=== PATIENT | female | born 1970 | race American Indian/Alaskan Native ===

== ENCOUNTER 2017-07-31 13:18 | Observation (INO) | payer MEDICAID ==
[2017-07-31 14:03] LABS: BASO # 0.1 K/uL (0.0-0.2); BASO % 0.5 % (0.0-2.0); EOS # 0.1 K/uL (0.0-0.7); EOS % 0.8 % (0.0-4.0); LYMPH # 2.3 K/uL (1.0-4.3); LYMPH % 20.9 % (20.0-40.0); MEAN CELL VOLUME 90.9 fL (81.0-99.0); MEAN CORPUSCULAR HGB CONC 34.1 g/dL (33.0-37.0); MEAN PLATELET VOLUME 8.9 fL (7.2-11.7); MONO # 0.6 K/uL (0.0-0.8); MONO % 5.2 % (0.0-10.0); NEUT % 72.6 % (50.0-75.0); RBC 3.86 Mil/uL (3.80-5.20); RED CELL DISTRIBUTION WIDTH 14.3 % (11.5-14.5); WHITE BLOOD COUNT 11.1 K/uL (4.8-10.8)
--- NOTE | 2017-07-31 14:06 | C.PDOC ---
History Of Present Illness 46 year old female, whose PMHx includes HTN and PE, is brought to the ED by ambulance for evaluation of chest pain which began one day ago. Patient describes symptoms as a "pressure" and "sharp" sensation. She states the pain began radiating towards her back this morning. Patient was noted to be sitting in her car outside of [employer] when someone called EMS. Patient states she felt like she was going to "pass out." She was given Nitro and Aspirin by EMS, which have improved her symptoms. Patient has history of PE and reports taking blood thinners in the past. She denies cough, extremity numbness/weakness. Time Seen by Provider: 07/31/17 13:40 Chief Complaint (Nursing): Chest Pain History Per: Patient, EMS History/Exam Limitations: no limitations Current Symptoms Are (Timing): Better Quality: Sharp, Pressure, "Pain" Nitro Therapy Administered: 1, Per EMS Additional History Per: Patient Past Medical History Reviewed: Historical Data, Nursing Documentation, Vital Signs Vital Signs: Last Vital Signs Temp 98.3 F 07/31/17 13:44 Pulse 73 07/31/17 17:32 Resp 13 07/31/17 17:32 BP 114/72 07/31/17 16:11 Pulse Ox 100 07/31/17 17:32 - Medical History PMH: Asthma, HTN, Pulmonary Embolism Surgical History: No Surg Hx Family History: States: Unknown Family Hx - Social History Hx Alcohol Use: No Hx Substance Use: No - Immunization History Hx Tetanus Toxoid Vaccination: No Hx Influenza Vaccination: No Hx Pneumococcal Vaccination: No Review Of Systems Cardiovascular: Positive for: Chest Pain Respiratory: Negative for: Cough Neurological: Negative for: Weakness, Numbness Physical Exam - Physical Exam Appears: Non-toxic, No Acute Distress Skin: Normal Color, Warm, Dry Head: Atraumatic, Normacephalic Eye(s): bilateral: Normal Inspection Oral Mucosa: Moist Neck: Supple Chest: Symmetrical, No Deformity, No Tenderness Cardiovascular: Rhythm Regular, No Murmur Respiratory: Normal Breath Sounds, No Rales, No Rhonchi, No Wheezing Extremity: Normal ROM, Capillary Refill (less than 2 seconds ) Neurological/Psych: Oriented x3, Normal Speech, Normal Cognition ED Course And Treatment - Laboratory Results Result Diagrams: 07/31/17 13:56 07/31/17 13:56 O2 Sat by Pulse Oximetry: 99 - Other Rad CXR X-Ray: Interpreted by Me, Viewed By Me, Read By Radiologist Interpretation: PROCEDURE: CHEST RADIOGRAPH, 1 VIEW. HISTORY: Chest pain. COMPARISON: None. FINDINGS: LUNGS: The lungs are well inflated and clear. PLEURA: No pneumothorax or pleural fluid seen. CARDIOVASCULAR: Normal. OSSEOUS STRUCTURES: No significant abnormalities. VISUALIZED UPPER ABDOMEN: Normal. OTHER FINDINGS: None. IMPRESSION: No active pulmonary disease. Medical Decision Making Medical Decision Making: Assessment: chest pain Plan: * Bloodwork * CXR * EKG * Toradol IM * reassess and disposition Progress: Bloodwork, CXR, EKG ordered and reviewed. Toradol IM administered. Disposition Discussed With Dr.: Kaveh Banks Doctor Will See Patient In The: Hospital Counseled Patient/Family Regarding: Studies Performed, Diagnosis - Disposition Referrals: Antoni Bradley MD [Staff Provider] - Disposition: HOSPITALIZED Disposition Time: 18:03 Condition: FAIR Forms: [facility] [employer] (Turkish) - POA Core Measure Indicators: Chest Pain - Clinical Impression Clinical Impression: Chest pain
[2017-07-31 14:24] LABS: ALB/GLOB RATIO 1.2 (1.0-2.1); ALBUMIN 4.1 g/dL (3.5-5.0); ALT/SGPT 31 U/L (9-52); AST/SGOT 38 U/L (14-36); BLOOD UREA NITROGEN 11 mg/dL (7-17); CALCIUM 8.9 mg/dl (8.6-10.4); GFR AFRICAN-AMERICAN > 60; GFR NON-AFRICAN AMERICAN > 60; LIPASE 132 U/L (23-300)
--- NOTE | 2017-07-31 14:33 | RAD ---
PROCEDURE: CHEST RADIOGRAPH, 1 VIEW HISTORY: Chest pain COMPARISON: None. FINDINGS: LUNGS: The lungs are well inflated and clear. PLEURA: No pneumothorax or pleural fluid seen. CARDIOVASCULAR: Normal. OSSEOUS STRUCTURES: No significant abnormalities. VISUALIZED UPPER ABDOMEN: Normal. OTHER FINDINGS: None. IMPRESSION: No active pulmonary disease.
[2017-07-31] MEDS ORDERED: Iodixanol 320 MG/ML 100 ML BOTTLE IV ONE (16:11)
--- NOTE | 2017-07-31 17:11 | CT ---
PROCEDURE: CT Chest with contrast (Pulmonary Angiogram) HISTORY: chest pain with hx of pe COMPARISON: None available. TECHNIQUE: Axial computed tomography images were obtained of the chest in the pulmonary arterial phase of enhancement. Coronal and sagittal reformatted images were created and reviewed. Intravenous contrast dose: 100 cc Visipaque 320. Mean Hounsfield unit values in the main pulmonary artery: 256.59 Radiation dose: Total exam DLP = 375.10 mGy-cm. This CT exam was performed using one or more of the following dose reduction techniques: Automated exposure control, adjustment of the mA and/or kV according to patient size, and/or use of iterative reconstruction technique. FINDINGS: PULMONARY ARTERIES: Unremarkable. No pulmonary embolism. AORTA: No acute findings. No thoracic aortic aneurysm. LUNGS: Unremarkable. No nodule, mass or pulmonary consolidation. PLEURAL SPACES: Unremarkable. No effusion or pneuomothorax. HEART: Unremarkable. No cardiomegaly. No significant pericardial effusion. LYMPH NODES: No lymphadenopathy. BONES, CHEST WALL: Unremarkable. No fracture or destructive lesion OTHER FINDINGS: Unremarkable. IMPRESSION: Unremarkable CT pulmonary angiogram. No pulmonary embolus.
[2017-07-31] MEDS ORDERED: Morphine 4 MG/ML VIAL IV STA (17:48)
[2017-07-31] MEDS ORDERED: Morphine 4 MG/ML VIAL ONE (18:25)
--- NOTE | 2017-07-31 23:27 | CP.PCM.CON ---
History of Present Illness - History of Present Illness History of Present Illness: Patient seen and evaluated Admitted for chest pain EKG non specific EKG changes Trop x 2 negative CTA negative for PE Check ECHO Will follow 46 year old female, whose PMHx includes HTN and PE, is brought to the ED by ambulance for evaluation of chest pain which began one day ago. Patient describes symptoms as a "pressure" and "sharp" sensation. She states the pain began radiating towards her back this morning. Patient was noted to be sitting in her car outside of [employer] when someone called EMS. Patient states she felt like she was going to "pass out." She was given Nitro and Aspirin by EMS, which have improved her symptoms. Patient has history of PE and reports taking blood thinners in the past. She denies cough, extremity numbness/weakness. - Medical History PMH: Asthma, HTN, Pulmonary Embolism Surgical History: No Surg Hx Family History: States: Unknown Family Hx - Social History Hx Alcohol Use: No Hx Substance Use: No - Immunization History Hx Tetanus Toxoid Vaccination: No Hx Influenza Vaccination: No Hx Pneumococcal Vaccination: No Review Of Systems Cardiovascular: Positive for: Chest Pain Respiratory: Negative for: Cough Neurological: Negative for: Weakness, Numbness Physical Exam - Physical Exam Appears: Non-toxic, No Acute Distress Skin: Normal Color, Warm, Dry Head: Atraumatic, Normacephalic Eye(s): bilateral: Normal Inspection Oral Mucosa: Moist Neck: Supple Chest: Symmetrical, No Deformity, No Tenderness Cardiovascular: Rhythm Regular, No Murmur Respiratory: Normal Breath Sounds, No Rales, No Rhonchi, No Wheezing Extremity: Normal ROM, Capillary Refill (less than 2 seconds ) Neurological/Psych: Oriented x3, Normal Speech, Normal Cognition Past Patient History - Past Social History Smoking Status: Never Smoked - CARDIAC Hx Hypertension: Yes - PULMONARY Hx Asthma: Yes Hx Pulmonary Embolism: Yes - NEUROLOGICAL HX Cerebrovascular Accident: Yes - PSYCHIATRIC Hx Substance Use: No - SURGICAL HISTORY Hx Surgeries: Yes Hx Hysterectomy: Yes Hx Tubal Ligation: Yes - ANESTHESIA Hx Anesthesia: Yes Hx Anesthesia Reactions: No Meds Allergies/Adverse Reactions: Allergies Allergy/AdvReac Type Severity Reaction Status Date / Time No Known Allergies Allergy Verified 07/31/17 13:43 - Medications Medications: Current Medications Aspirin (Aspirin) 325 mg PO DAILY [facility] Metoprolol Tartrate (Lopressor) 25 mg PO BID [facility] Rosuvastatin Calcium (Crestor) 5 mg PO HS [facility] Last Admin: 07/31/17 21:23 Dose: 5 mg Results - Vital Signs Recent Vital Signs: Last Vital Signs Temp 97.9 F 07/31/17 21:40 Pulse 68 07/31/17 22:15 Resp 20 07/31/17 21:40 BP 130/81 07/31/17 21:40 Pulse Ox 99 07/31/17 21:40 - Labs Result Diagrams: 08/01/17 04:12 08/01/17 04:12 Labs: Laboratory Results - last 24 hr 07/31/17 07/31/17 07/31/17 13:56 13:56 13:56 WBC 11.1 H RBC 3.86 Hgb 12.0 Hct 35.1 MCV 90.9 MCH 31.0 MCHC 34.1 RDW 14.3 Plt Count 260 MPV 8.9 Neut % (Auto) 72.6 Lymph % (Auto) 20.9 [place] % (Auto) 5.2 Eos % (Auto) 0.8 Baso % (Auto) 0.5 Neut # (Auto) 8.0 H Lymph # (Auto) 2.3 [place] # (Auto) 0.6 Eos # (Auto) 0.1 Baso # (Auto) 0.1 D-Dimer, Quantitative 1509 H Sodium 141 Potassium 4.5 Chloride 103 Carbon Dioxide 25 Anion Gap 17 BUN 11 Creatinine 0.7 Est GFR ( Amer) > 60 Est GFR (Non-Af Amer) > 60 Random Glucose 86 Calcium 8.9 Total Bilirubin 0.5 AST 38 H ALT 31 Alkaline Phosphatase 100 Troponin I < 0.0120 Total Protein 7.7 Albumin 4.1 Globulin 3.5 Albumin/Globulin Ratio 1.2 Lipase 132 07/31/17 20:24 WBC RBC Hgb Hct MCV MCH MCHC RDW Plt Count MPV Neut % (Auto) Lymph % (Auto) [place] % (Auto) Eos % (Auto) Baso % (Auto) Neut # (Auto) Lymph # (Auto) [place] # (Auto) Eos # (Auto) Baso # (Auto) D-Dimer, Quantitative Sodium Potassium Chloride Carbon Dioxide Anion Gap BUN Creatinine Est GFR ( Amer) Est GFR (Non-Af Amer) Random Glucose Calcium Total Bilirubin AST ALT Alkaline Phosphatase Troponin I < 0.0120 Total Protein Albumin Globulin Albumin/Globulin Ratio Lipase Assessment & Plan - Assessment and Plan (Free Text) Assessment: Patient seen and evaluated Admitted for chest pain EKG non specific EKG changes Trop x 2 negative CTA negative for PE Check ECHO Will follow
[2017-08-01 04:21] LABS: BASO # 0.1 K/uL (0.0-0.2); BASO % 0.5 % (0.0-2.0); EOS # 0.2 K/uL (0.0-0.7); EOS % 1.5 % (0.0-4.0); HEMOGLOBIN 11.5 g/dL (11.0-16.0); LYMPH # 2.9 K/uL (1.0-4.3); LYMPH % 28.3 % (20.0-40.0); MEAN CELL VOLUME 91.2 fL (81.0-99.0); MEAN CORPUSCULAR HEMOGLOBIN 31.4 pg (27.0-31.0); MEAN CORPUSCULAR HGB CONC 34.4 g/dL (33.0-37.0); MEAN PLATELET VOLUME 9.6 fL (7.2-11.7); MONO # 0.6 K/uL (0.0-0.8); MONO % 6.2 % (0.0-10.0); NEUT # 6.5 K/uL (1.8-7.0); NEUT % 63.5 % (50.0-75.0); RBC 3.68 Mil/uL (3.80-5.20); RED CELL DISTRIBUTION WIDTH 14.2 % (11.5-14.5); WHITE BLOOD COUNT 10.3 K/uL (4.8-10.8)
[2017-08-01 04:43] LABS: LDL CHOLESTEROL 66 mg/dL (0-129)
[2017-08-01 04:46] LABS: ALB/GLOB RATIO 0.9 (1.0-2.1); ALBUMIN 3.3 g/dL (3.5-5.0); ALT/SGPT 28 U/L (9-52); AST/SGOT 27 U/L (14-36); BLOOD UREA NITROGEN 12 mg/dL (7-17); CALCIUM 7.9 mg/dl (8.6-10.4); GFR AFRICAN-AMERICAN > 60; GFR NON-AFRICAN AMERICAN > 60; HDL CHOLESTEROL 40 mg/dL (30-70)
[2017-08-01] MEDS: Enoxaparin 40 mg Syringe SC SCH (09:51)
--- NOTE | 2017-08-01 10:19 | CP.PCM.PN ---
Subjective - Date & Time of Evaluation Date of Evaluation: 08/01/17 Time of Evaluation: 10:20 - Subjective Subjective: H&P [facility] #[id number] Objective - Vital Signs/Intake and Output Vital Signs (last 24 hours): Temp Pulse Resp BP Pulse Ox 98.0 F 59 L 20 153/90 H 100 08/01/17 08:19 08/01/17 08:19 08/01/17 08:19 08/01/17 09:50 08/01/17 08:19 - Medications Medications: Current Medications Aspirin (Aspirin) 325 mg PO DAILY [facility] Last Admin: 08/01/17 09:51 Dose: 325 mg Enoxaparin Sodium (Lovenox) 40 mg SC DAILY [facility] Last Admin: 08/01/17 09:51 Dose: 40 mg Metoprolol Tartrate (Lopressor) 25 mg PO BID [facility] Last Admin: 08/01/17 09:50 Dose: 25 mg Rosuvastatin Calcium (Crestor) 5 mg PO HS [facility] Last Admin: 07/31/17 21:23 Dose: 5 mg - Labs Labs: 08/01/17 04:12 08/01/17 04:12
--- NOTE | 2017-08-01 12:58 | CARD ---
APPROVED REPORT EKG Measurement Heart [id number] <Conclusion> Sinus bradycardia Nonspecific ST and T wave abnormality Abnormal ECG
--- NOTE | 2017-08-01 13:06 | VASCLAB ---
PROCEDURE: Lower Extremity Venous Duplex Exam. HISTORY: Shortness breath PRIORS: None. TECHNIQUE: Bilateral common femoral, femoral, popliteal and posterior tibial, peroneal and great saphenous veins were evaluated. Flow was assessed with color Doppler, compressibility, assessment of phasic flow and augmentation response. Report prepared by Randi Rhoades, [facility], [facility] FINDINGS: RIGHT: 1. Common Femoral Vein: 1.1. Compressibility - Fully compressible: Thrombus - None : Flow - Phasic: Augmentation -Normal: Reflux - None. 2. Femoral Vein: 2.1. Compressibility - Fully compressible: Thrombus - None : Flow - Phasic: Augmentation -Normal: Reflux - None. 3. Popliteal Vein: 3.1. Compressibility - Fully compressible: Thrombus - None : Flow - Phasic: Augmentation -Normal: Reflux - None. 4. Posterior Tibial Vein: 4.1. Compressibility - Fully compressible: Thrombus - None: Flow - Phasic: Augmentation -Normal: Reflux - None. 5. Peroneal Vein: 5.1. Compressibility - Fully compressible: Thrombus - None: Flow - Phasic: Augmentation -Normal: Reflux - None. 6. Great Saphenous Vein: 6.1. Compressibility - Fully compressible: Thrombus - None: Flow - Phasic: Augmentation - Normal: Reflux - None. LEFT: 1. Common Femoral Vein: 1.1. Compressibility - Fully compressible: Thrombus - None: Flow - Phasic: Augmentation -Normal: Reflux - None. 2. Femoral Vein: 2.1. Compressibility - Fully compressible: Thrombus - None: Flow - Phasic: Augmentation -Normal: Reflux - None. 3. Popliteal Vein: 3.1. Compressibility - Fully compressible: Thrombus - None : Flow - Phasic: Augmentation -Normal: Reflux - None. 4. Posterior Tibial Vein: 4.1. Compressibility - Fully compressible: Thrombus - None: Flow - Phasic: Augmentation -Normal: Reflux - None. 5. Peroneal Vein: 5.1. Compressibility - Fully compressible: Thrombus - None: Flow - Phasic: Augmentation -Normal: Reflux - None. 6. Great Saphenous Vein: 6.1. Compressibility - Fully compressible: Thrombus - None: Flow - Phasic: Augmentation - Normal: Reflux - None. OTHER FINDINGS: Right: None significant. Left: None significant. IMPRESSION: Right: No evidence of deep or superficial vein thrombosis of the right lower extremity. Normal valve function noted of the right side. Left: No evidence of deep or superficial vein thrombosis of the left lower extremity. Normal valve function noted of the left side.
--- NOTE | 2017-08-01 13:06 | VASCLAB ---
PROCEDURE: HISTORY: bruit COMPARISON: None available. TECHNIQUE: Grayscale and duplex Doppler evaluation of the cervical carotid and vertebral arteries were performed. The common carotid, carotid bifurcations and cervical Internal Carotid Artery (ICA) and proximal External Carotid Artery (ECA) were evaluated. The vertebral arteries were evaluated for gross patency and flow direction. Report prepared by Randi Rhoades, [facility], S FINDINGS: RIGHT CAROTID ARTERIES: 1. Common Carotid Artery: No significant focal plaque formation of the right common carotid artery. Maximum Peak Systolic velocity: 92 cm/sec: End-diastolic velocity 26 cm/sec. 2. Carotid Bifurcation: plaque formation. Maximum Peak Systolic velocity: 64 cm/sec: End-diastolic velocity 14 cm/sec. 3. Internal Carotid Artery: Plaque description: 3.1. Proximal Segment: Peak systolic velocity 105 cm/sec: End-diastolic velocity 35 cm/sec - % stenosis 0-15% 3.2. Middle Segment: Peak systolic velocity 77 cm/sec: End-diastolic velocity 34 cm/sec - % stenosis 0-15% 3.3. Distal Segment: Peak systolic velocity 92 cm/sec: End-diastolic velocity 49 cm/sec - % stenosis 0-15% 4. External Carotid Artery: No significant focal plaque formation. Peak systolic velocity 71 cm/sec 5. ICA/CCA Ratio: 1.1 LEFT CAROTID ARTERIES: 1. Common Carotid Artery: No significant focal plaque formation of the left common carotid artery. Maximum Peak Systolic velocity: 88 cm/sec: End-diastolic velocity 29 cm/sec. 2. Carotid Bifurcation: plaque formation. Maximum Peak Systolic velocity: 63 cm/sec: End-diastolic velocity 17 cm/sec. 3. Internal Carotid Artery: Plaque description: 3.1. Proximal Segment: Peak systolic velocity 87 cm/sec: End-diastolic velocity 39 cm/sec - % stenosis 0-15% 3.2. Middle Segment: Peak systolic velocity 102 cm/sec: End-diastolic velocity 51 cm/sec - % stenosis 0-15% 3.3. Distal Segment: Peak systolic velocity 90 cm/sec: End-diastolic velocity 45 cm/sec - % stenosis 0-15% 4. External Carotid Artery: No significant focal plaque formation. Peak systolic velocity 69 cm/sec 5. ICA/CCA Ratio: 1.2 VERTEBRAL ARTERIES: 1. Right Vertebral Artery: The right vertebral artery flow direction is antegrade. 2. Left Vertebral Artery: The left vertebral artery flow direction is antegrade. OTHER FINDINGS: 1. Right Brachial Blood pressure: 106 mmHg. 2. Left Brachial Blood pressure: mmHg. IMPRESSION: RIGHT: Duplex scan does not suggest hemodynamically significant stenosis of the right extracranial carotid arteries. LEFT: Duplex scan does not suggest hemodynamically significant stenosis of the left extracranial carotid arteries.
--- NOTE | 2017-08-01 13:10 | CT ---
PROCEDURE: CT HEAD WITHOUT CONTRAST. HISTORY: dizziness COMPARISON: None available. TECHNIQUE: Axial computed tomography images were obtained through the head/brain without intravenous contrast. Radiation dose: Total exam DLP = 1223.55 mGy-cm. This CT exam was performed using one or more of the following dose reduction techniques: Automated exposure control, adjustment of the mA and/or kV according to patient size, and/or use of iterative reconstruction technique. FINDINGS: HEMORRHAGE: No intracranial hemorrhage. BRAIN: No mass effect or edema. No atrophy or chronic microvascular ischemic changes. VENTRICLES: Unremarkable. No hydrocephalus. CALVARIUM: Unremarkable. PARANASAL SINUSES: Unremarkable as visualized. No significant inflammatory changes. MASTOID AIR CELLS: Unremarkable as visualized. No inflammatory changes. OTHER FINDINGS: None. IMPRESSION: Normal CT of the Head. No intracranial mass, hemorrhage or evidence of acute infarct.
[2017-08-01 15:13] LABS: SQUAMOUS EPITHIAL 10 /hpf (0-5); URINE BACTERIA OCC (<OCC); URINE BILIRUBIN NEGATIVE (NEGATIVE); URINE CLARITY Hazy (Clear); URINE COLOR Yellow (YELLOW); URINE GLUCOSE (UA) NORMAL (Normal); URINE LEUKOCYTE ESTERASE NEG Leu/uL (Negative); URINE PROTEIN NEGATIVE (NEGATIVE)
[2017-08-01 15:18] LABS: URINE BLOOD SMALL (NEGATIVE)
--- NOTE | 2017-08-01 17:52 | CARD ---
APPROVED REPORT EXAM: Two-dimensional and M-mode echocardiogram with Doppler and color Doppler. Other Information Quality : GoodRhythm : INDICATION Pulmonary Embolism LV Function:SystolicDiastolic Chest Pain RISK FACTORS Hypertension 2D DIMENSIONS IVSd1.1 (0.7-1.1cm)LVDd4.2 (3.9-5.9cm) PWd1.1 (0.7-1.1cm)LVDs2.6 (2.5-4.0cm) FS (%) 37.9 %LVEF (%)68.4 (>50%) M-Mode DIMENSIONS RVDd3.04 (2.1-3.2cm)Left Atrium (MM)3.53 (2.5-4.0cm) IVSd0.88 (0.7-1.1cm)Aortic Root2.79 (2.2-3.7cm) LVDd4.08 (4.0-5.6cm)Aortic Cusp Exc.2.13 (1.5-2.0cm) PWd1.00 (0.7-1.1cm)FS (%) 39 % LVDs2.49 (2.0-3.8cm)LVEF (%)70 (>50%) Mitral Valve MV E Zgodlhdh84.1cm/sMV A Afyoupha92.5cm/sE/A ratio1.8 TDI E/Lateral E'0.0E/Medial E'0.0 Tricuspid Valve TR Peak [id number]/sTR Peak Gr.[id number] LEFT VENTRICLE The left ventricle is normal size. There is normal left ventricular wall thickness. Left ventricle systolic function is normal. The Ejection Fraction is 65-70%. There is normal LV segmental wall motion. The left ventricular diastolic function is normal. RIGHT VENTRICLE The right ventricle is normal size. There is normal right ventricular wall thickness. The right ventricular systolic function is normal. ATRIA The left atrium size is normal. The right atrium size is normal. The interatrial septum is intact with no evidence for an atrial septal defect. AORTIC VALVE The aortic valve is normal in structure. No aortic regurgitation is present. There is no aortic valvular stenosis. There is no aortic valvular vegetation. MITRAL VALVE The mitral valve is normal in structure. A borderline mitral valve prolapse is present. There is no mitral valve stenosis. Mitral regurgitation is mild. TRICUSPID VALVE The tricuspid valve is normal in structure. There is mild tricuspid regurgitation. Right ventricular systolic pressure is estimated at less than 30 mmHg. There is no pulmonary hypertension. PULMONIC VALVE The pulmonic valve is not well visualized. There is mild to moderate pulmonic valvular regurgitation. GREAT VESSELS The aortic root is normal in size. PERICARDIAL EFFUSION There is no significant pericardial effusion. <Conclusion> Left ventricle systolic function is normal. The Ejection Fraction is 65-70%. No aortic regurgitation is present. Mitral regurgitation is mild. There is mild tricuspid regurgitation. There is no pulmonary hypertension. There is mild to moderate pulmonic valvular regurgitation.
--- NOTE | 2017-08-01 21:28 | HP ---
CHIEF COMPLAINT: Chest pain associated with severe dizziness, near-syncope, and chest pain radiating to the back, was sharp while driving. HISTORY OF PRESENT ILLNESS: Ms. Miranda is a 46-year-old female with past medical history of hypertension, hyperlipidemia, asthma, history of TIA without any residual neurological deficits, has been following up with Dr. Osmar Cruz from [facility], came into the ED, brought by EMS after the patient was found dizzy, complaining of chest pain in a parking lot at [employer] as per the patient. All the history obtained from the patient. As per the patient, she woke up yesterday morning feeling retrosternal stabbing chest pain radiating to the back associated with shortness of breath and mild nausea. She thought her symptoms would get better. She was driving to [place] from [place]. While she was in the tunnel, she felt very dizzy and felt very nauseous, felt like things around her were getting darker. She could not see anything around. Slowly she put flashes and pulled over into the [employer] parking lot where a bystander noticed and called 911. The patient denied any loss of consciousness, but her dizziness was so severe, she felt like things around her moving. Her chest pain was 10 to 12/10. The pain was radiating to the back associated with shortness of breath and nausea and dizziness. After EMS arrived, they gave 2 sublingual nitroglycerin and aspirin, her chest had gotten slightly better and she was brought into the emergency room. After she came into the emergency room with IV fluids, she felt slightly better. This morning, she is still complaining of pain 5/10, sharp in nature, radiating to the back without any diaphoresis, but still complaining of dizziness and dizziness this morning is worse while getting up from sitting position, feels like room is spinning around, likely feeling nauseous. Denies any abdominal pain, diarrhea, or constipation. Denies any urinary complaints. Denies any leg pains or leg cramps. PAST MEDICAL HISTORY: As described, hypertension, asthma, history of TIA versus mild CVA without any residual deficits. PAST SURGICAL HISTORY: Underwent tubal ligation and hysterectomy. FAMILY HISTORY: Hypertension in mother and her cousin from coronary artery disease. PERSONAL HISTORY: She is single. Having 7 children. Currently unemployed. Lives with her youngest daughter. SOCIAL HISTORY: Denies smoking, alcohol, or drug abuse. ALLERGIES: NO KNOWN DRUG ALLERGIES. HOME MEDICATIONS: Include simvastatin, albuterol, aspirin, and blood pressure medications which she cannot recall. REVIEW OF SYSTEMS: As described in the history of present illness. All other systems reviewed and are found to be negative. PHYSICAL EXAMINATION: GENERAL: Middle-aged female,, lying in bed, in no acute distress. VITAL SIGNS: Blood pressure 106/69, pulse 59, respirations 20, temperature 98 degrees Fahrenheit, O2 saturations 100% on room air. HEENT: Pupils are equal, round, and reactive to light and accommodation. Extraocular muscles are intact. No icterus. No pallor. No oral thrush. No pharyngeal congestion. NECK: Supple. No JVD. LUNGS: Bilateral vesicular breath sounds. No wheezing. No rhonchi. CVS: S1 and S2 present. Regular. ABDOMEN: Soft, nontender. Bowel sounds present. No guarding. No rigidity. No rebound tenderness noted. WEATHER ANALYST: Alert, awake, and oriented x3. Cranial nerves II through XII grossly intact. No focal deficits noted. EXTREMITIES: No edema. Palpable peripheral pulses. LABORATORY DATA: Labs done from ED yesterday: WBC 11.1, hemoglobin 12, hematocrit 35.1, and platelets 250. D-Dimer 1509. Sodium 141, potassium 4.5, chloride 103, bicarbonate 25, BUN 11, creatinine 0.7, glucose 86, calcium 8.9, total bilirubin 0.5, AST 38, ALT 31, alkaline phosphatase 100, total protein 7.7, albumin 4.1, lipase 132. EKG consistent with nonspecific ST-T changes, normal sinus rhythm. Chest x-ray negative for any infiltrates. CT chest negative for any PE. ASSESSMENT AND PLAN: Middle age female with history of hypertension, hyperlipidemia, history of mild cerebrovascular accident without any residual deficits, , asthma, who has been following up with Dr. Osmar Cruz from [place], came in with progressively worsening and stabbing chest pain radiating to the back associated with nausea and dizziness and mild shortness of breath. The patient is being admitted for further evaluation. 1. Chest pain in a patient with multiple risk factors, rule out acute coronary syndrome. 2. Dizziness with near syncope, symptoms consistent with vertigo. 3. Hypertension. 4. Hyperlipidemia. 5. History of asthma. PLAN: The patient is being admitted to cardiac telemetry. We will do serial cardiac enzymes, serial EKGs. We will check echocardiogram, check carotid Doppler and check lower extremity Doppler to rule out any DVT. We will give aspirin 325 mg p.o. daily, Zocor, and Lopressor 25 mg p.o. b.i.d. Adjust medications as needed. We will give meclizine and . We will check CT scan of the head. We will obtain Neurology evaluation, Cardiology consult appreciated. We will add further recommendations as her clinical course progresses. Kaveh Banks MD
[2017-08-02 00:42] VITALS: RESP 20
--- NOTE | 2017-08-02 00:53 | CP.PCM.PN ---
Subjective - Date & Time of Evaluation Date of Evaluation: 08/01/17 Time of Evaluation: 19:05 - Subjective Subjective: Patient has normal ECHO Chest pain atypical Not too many risk factors Recommend stress test as out patient Review Of Systems Cardiovascular: Positive for: Chest Pain Respiratory: Negative for: Cough Neurological: Negative for: Weakness, Numbness Physical Exam - Physical Exam Appears: Non-toxic, No Acute Distress Skin: Normal Color, Warm, Dry Head: Atraumatic, Normacephalic Eye(s): bilateral: Normal Inspection Oral Mucosa: Moist Neck: Supple Chest: Symmetrical, No Deformity, No Tenderness Cardiovascular: Rhythm Regular, No Murmur Respiratory: Normal Breath Sounds, No Rales, No Rhonchi, No Wheezing Extremity: Normal ROM, Capillary Refill (less than 2 seconds ) Neurological/Psych: Oriented x3, Normal Speech, Normal Cognition Objective - Vital Signs/Intake and Output Vital Signs (last 24 hours): Temp Pulse Resp BP Pulse Ox 97.9 F 60 20 105/68 98 08/01/17 23:50 08/01/17 23:50 08/01/17 23:50 08/01/17 23:50 08/01/17 23:50 - Medications Medications: Current Medications Acetaminophen (Tylenol 325mg Tab) 650 mg PO Q6H PRN Last Admin: 08/01/17 22:30 Dose: 650 mg Aspirin (Aspirin) 325 mg PO DAILY [facility] Last Admin: 08/01/17 09:51 Dose: 325 mg Diphenhydramine HCl (Benadryl) 25 mg PO Q6H PRN Last Admin: 08/01/17 22:30 Dose: 25 mg Enoxaparin Sodium (Lovenox) 40 mg SC DAILY [facility] Last Admin: 08/01/17 09:51 Dose: 40 mg Meclizine HCl (Antivert) 12.5 mg PO Q8H PRN PRN Reason: Dizziness Metoprolol Tartrate (Lopressor) 25 mg PO BID [facility] Last Admin: 08/01/17 17:40 Dose: 25 mg Rosuvastatin Calcium (Crestor) 5 mg PO HS [facility] Last Admin: 08/01/17 22:30 Dose: 5 mg - Labs Labs: 08/01/17 04:12 08/01/17 04:12 Assessment and Plan - Assessment and Plan (Free Text) Assessment: Patient has normal ECHO Chest pain atypical Not too many risk factors Recommend stress test as out patient
--- NOTE | 2017-08-02 06:58 | CP.PCM.CON ---
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 - VBI MRI/CAROTID/ECHO ASA/STATIN/ARB OR ACEI OOB WEIGHT REDUCTION Past Patient History - Past Social History Smoking Status: Never Smoked - CARDIAC Hx Hypertension: Yes - PULMONARY Hx Asthma: Yes Hx Pulmonary Embolism: Yes - NEUROLOGICAL HX Cerebrovascular Accident: Yes - PSYCHIATRIC Hx Substance Use: No - SURGICAL HISTORY Hx Surgeries: Yes Hx Hysterectomy: Yes Hx Tubal Ligation: Yes - ANESTHESIA Hx Anesthesia: Yes Hx Anesthesia Reactions: No Meds Allergies/Adverse Reactions: Allergies Allergy/AdvReac Type Severity Reaction Status Date / Time No Known Allergies Allergy Verified 07/31/17 13:43 - Medications Medications: Current Medications Acetaminophen (Tylenol 325mg Tab) 650 mg PO Q6H PRN Last Admin: 08/01/17 22:30 Dose: 650 mg Aspirin (Aspirin) 325 mg PO DAILY [facility] Last Admin: 08/01/17 09:51 Dose: 325 mg Diphenhydramine HCl (Benadryl) 25 mg PO Q6H PRN Last Admin: 08/01/17 22:30 Dose: 25 mg Enoxaparin Sodium (Lovenox) 40 mg SC DAILY [facility] Last Admin: 08/01/17 09:51 Dose: 40 mg Meclizine HCl (Antivert) 12.5 mg PO Q8H PRN PRN Reason: Dizziness Metoprolol Tartrate (Lopressor) 25 mg PO BID [facility] Last Admin: 08/01/17 17:40 Dose: 25 mg Rosuvastatin Calcium (Crestor) 5 mg PO HS [facility] Last Admin: 08/01/17 22:30 Dose: 5 mg Results - Vital Signs Recent Vital Signs: Last Vital Signs Temp 97.5 F L 08/02/17 04:30 Pulse 62 08/02/17 04:30 Resp 20 08/02/17 04:30 BP 110/71 08/02/17 04:30 Pulse Ox 96 08/02/17 04:30 - Labs Result Diagrams: 08/01/17 04:12 08/01/17 04:12 Labs: Laboratory Results - last 24 hr 08/01/17 08/01/17 04:12 14:54 Hemoglobin A1c 5.4 Urine Color Yellow Urine Clarity Hazy Urine pH 6.0 Ur Specific [place] 1.015 Urine Protein Negative Urine Glucose (UA) Normal Urine Ketones Negative Urine Blood Small Urine Nitrate Negative Urine Bilirubin Negative Urine Urobilinogen 2.0 H Ur Leukocyte Esterase Neg Urine WBC (Auto) 4 Urine RBC (Auto) 18 H Ur Squamous Epith Cells 10 H Urine Bacteria Occ H
[2017-08-02] MEDS: Enoxaparin 40 mg Syringe SC SCH (09:26)
--- NOTE | 2017-08-02 10:35 | CP.PCM.PN ---
Subjective - Date & Time of Evaluation Date of Evaluation: 08/02/17 Time of Evaluation: 10:35 - Subjective Subjective: Progress note dictated #[id number] Objective - Vital Signs/Intake and Output Vital Signs (last 24 hours): Temp Pulse Resp BP Pulse Ox 98.0 F 66 20 132/81 99 08/02/17 08:37 08/02/17 09:18 08/02/17 09:18 08/02/17 09:18 08/02/17 09:18 - Medications Medications: Current Medications Acetaminophen (Tylenol 325mg Tab) 650 mg PO Q6H PRN Last Admin: 08/01/17 22:30 Dose: 650 mg Aspirin (Aspirin) 325 mg PO DAILY [facility] Last Admin: 08/02/17 09:18 Dose: 325 mg Diphenhydramine HCl (Benadryl) 25 mg PO Q6H PRN Last Admin: 08/01/17 22:30 Dose: 25 mg Enoxaparin Sodium (Lovenox) 40 mg SC DAILY [facility] Last Admin: 08/02/17 09:26 Dose: 40 mg Meclizine HCl (Antivert) 12.5 mg PO Q8H PRN PRN Reason: Dizziness Last Admin: 08/02/17 08:10 Dose: 12.5 mg Metoprolol Tartrate (Lopressor) 25 mg PO BID [facility] Last Admin: 08/02/17 09:18 Dose: 25 mg Rosuvastatin Calcium (Crestor) 5 mg PO HS [facility] Last Admin: 08/01/17 22:30 Dose: 5 mg - Labs Labs: 08/01/17 04:12 08/01/17 04:12
--- NOTE | 2017-08-02 13:04 | CON ---
DATE: ATTENDING PHYSICIAN: Kaveh Banks MD LOCATION: The patient in room number 671, bed A. REASON FOR CONSULTATION: Dizziness. CHIEF COMPLAINT: The patient was brought into [facility] from the [facility] with a history of vague symptoms. From neurological point of view, I was called in to evaluate her for further management. HISTORY OF PRESENT ILLNESS: Ms. 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 While she was in [facility], she felt like some discomfort in the chest piercing back to her back. Following this, she feels like tremulous. Following exiting the [facility], she pulled the car to [facility]. The bystanders looked at her and inquired her. Following this, she was brought into [facility] for further evaluation. The whole symptom lasted for about a few minutes and then disappeared. This episode was not associated with headache, visual, or bulbar dysfunction. No focal weakness. However, she is complaining of intermittent headache now at present. No similar episodes happened in the past. No history of loss of consciousness. No history of involuntary movements, besides what she had at this admission. History of left-sided numbness with preceding fall, has been admitted in a hospital in [place] for about a week or so, being diagnosed with mini-stroke. Been on medication for cholesterol, high blood pressure, and aspirin. PAST MEDICAL HISTORY: As stated above including hypertension, asthma. PERSONAL HISTORY: Denies smoking or alcohol use. No history of miscarriages. REVIEW OF SYSTEMS: The 12-point system being reviewed from neuro, dizziness, headache. MEDICATIONS: Antivert, aspirin, Ativan, Benadryl, Crestor, Lopressor, Lovenox, and Tylenol. PHYSICAL EXAMINATION: VITAL SIGNS: Blood pressure 110/71, mean artery pressure of 84, respiratory rate 18, temperature afebrile, pulse rate 62. NECK: Supple. No carotid bruits. HEART: Heart sounds regular. CHEST: Fair air entry. EXTREMITIES: No edema in legs. NEUROLOGIC EXAMINATION: Mental status examination: She is awake, alert, and oriented to person, place, and time. Speech is clear. Naming, repetition, fluency, comprehension all within normal. Cranial nerve examination: Visual field intact. Pupils reactive to light. Extraocular movements normal. No nystagmus. No facial sensory deficit. Mild facial asymmetry manifesting with flattening of the left nasolabial fold. Hearing seems to be intact. Motor examination: Outstretched hand with eyes closed, no drift noted. Power is symmetric on either side. Deep tendon reflexes, biceps, brachialis, triceps 1+, left knee 2+, right knee 1+, both ankles are absent. Plantars are upgoing on her left side, right side with equivocal response. Sensory examination is normal. Coordination: Reuost-[id number] test is intact. Her gait is deferred at this time. WORKUP: CT of the head reported as negative for acute changes. EKG: Normal sinus rhythm. Blood workup: WBC 10.3, hemoglobin 11.5, hematocrit 33.5, platelets 259. Sodium 138, potassium 4.2, chloride 107, bicarbonate 20, 24, GFR more than 60. Urinalysis shows 18 rbc's and occasional bacteria. CONCLUSION: Ms. Jenny Miranda has been presenting with as per neurological examination, mild left hemiparesis with right equivocal response on Babinski sign. Consistent with possible multifactorial central nervous system pathologies, could be ischemic process. However, the presenting symptoms are not related to the examination, probably the current examination could be the preexisting problem. However, the current examination of possible dizziness could raise the possibility of vertebrobasilar insufficiency. RECOMMENDATIONS: 1. MRI of the brain to rule out ischemic process. 2. Carotid Doppler to assess the stenosis. 3. Echocardiogram to see any cardioembolic phenomenon. 4. Blood workup including hypercoagulable stage as requested. 5. Aspirin, statin, and either ABIODUN inhibitors or angiotensin receptor blockers should be given for stroke prophylaxis. 6. Weight reduction has been discussed with the patient, probably should be benefited of doing a polysomnogram as outpatient to rule out any hidden sleep-related breathing disorder. If the patient is stable following workup, the patient can be discharged and should have followup visit with her neurologist as outpatient. Luisito Blair MD
--- NOTE | 2017-08-02 22:56 | PN ---
DATE: 08/02/2017 SUBJECTIVE: The patient was seen and examined at bedside. The patient is still complaining of dizziness upon getting up from lying down position, associated with mild nausea. The patient refused MRI. All other systems reviewed and were found to be negative. PHYSICAL EXAMINATION: GENERAL: Middle-aged female, lying in bed, in no acute distress. VITAL SIGNS: Blood pressure 99/64, pulse 56, respirations 20, temperature 98.1 degrees Fahrenheit, O2 saturations 98% on room air. HEENT: Pupils equal, round, reacting to light and accommodation. Extraocular muscles intact. No icterus, no pallor. No oral thrush. No pharyngeal congestion. NECK: Supple. No JVD. LUNGS: Bilateral with clear breath sounds. No wheezing, no rhonchi. CVS: S1 and S2 present, regular. ABDOMEN: Soft, nontender. Bowel sounds present. No guarding, no rigidity, no rebound tenderness noted. BLAST FURNACE HELPER: Alert, awake, oriented x3. No focal deficits noted. EXTREMITIES: No edema. Palpable peripheral pulses. MEDICATIONS: Include Tylenol as needed, aspirin 325 mg daily, Benadryl 25 mg p.o. every 6 hours p.r.n., Lovenox 40 mg subcu daily, Antivert 12.5 mg p.o. every 8 hours, Lopressor 25 mg p.o. b.i.d., Crestor 5 mg p.o. at bedtime. LABS: No new labs from today. CT head negative. ASSESSMENT AND PLAN: Middle-aged female with history of hypertension, hyperlipidemia, asthma, history of mild transient ischemic attack versus cerebrovascular accident without any residual deficit, admitted for chest pain, dizziness, with near syncope symptoms. CT head was negative. Cardiac workup is negative so far. Echo, EF within normal limits. Carotid Dopplers and lower extremity Dopplers negative. The patient is scheduled for MRI which the patient refused because of claustrophobia. Neurology and Cardiology input appreciated. The patient is cleared by Cardiology and Neurology but the patient is still complaining of persistent dizziness, and the patient was lethargic this morning after she got her Ativan. We will increase Antivert to 25 mg p.o. t.i.d. We will request Public Address System Mechanic for discharge planning. If patient remains stable and improved with her symptoms, we will plan discharging the patient home in a.m. Kaveh Banks MD [facility] # [id number]
[2017-08-03 07:45] LABS: BASO # 0.1 K/uL (0.0-0.2); BASO % 0.5 % (0.0-2.0); EOS # 0.2 K/uL (0.0-0.7); EOS % 1.4 % (0.0-4.0); HEMOGLOBIN 12.4 g/dL (11.0-16.0); LYMPH # 2.5 K/uL (1.0-4.3); LYMPH % 23.1 % (20.0-40.0); MEAN CELL VOLUME 91.3 fL (81.0-99.0); MEAN CORPUSCULAR HEMOGLOBIN 31.6 pg (27.0-31.0); MEAN CORPUSCULAR HGB CONC 34.6 g/dL (33.0-37.0); MEAN PLATELET VOLUME 9.3 fL (7.2-11.7); MONO # 0.6 K/uL (0.0-0.8); MONO % 5.4 % (0.0-10.0); NEUT # 7.5 K/uL (1.8-7.0); NEUT % 69.6 % (50.0-75.0); NRBC % 0.1 % (0.0-2.0); RBC 3.92 Mil/uL (3.80-5.20); RED CELL DISTRIBUTION WIDTH 14.4 % (11.5-14.5); WHITE BLOOD COUNT 10.7 K/uL (4.8-10.8)
[2017-08-03 08:01] LABS: ALBUMIN 3.6 g/dL (3.5-5.0); ALT/SGPT 32 U/L (9-52); AST/SGOT 29 U/L (14-36); BLOOD UREA NITROGEN 11 mg/dL (7-17); CALCIUM 8.4 mg/dl (8.6-10.4); GFR AFRICAN-AMERICAN > 60; GFR NON-AFRICAN AMERICAN > 60
[2017-08-03 08:20] VITALS: O2SAT 99
[2017-08-03] MEDS: Enoxaparin 40 mg Syringe SC SCH (10:43)
--- NOTE | 2017-08-03 11:15 | CP.PCM.PN ---
Subjective - Date & Time of Evaluation Date of Evaluation: 08/03/17 Time of Evaluation: 11:00 - Subjective Subjective: Progress note dictated #[id number] Objective - Vital Signs/Intake and Output Vital Signs (last 24 hours): Temp Pulse Resp BP Pulse Ox 97.7 F 68 20 115/73 99 08/03/17 08:18 08/03/17 10:43 08/03/17 08:18 08/03/17 10:43 08/03/17 08:18 Intake and Output: 08/03/17 08/03/17 06:59 18:59 Intake Total 240 Balance 240 - Medications Medications: Current Medications Acetaminophen (Tylenol 325mg Tab) 650 mg PO Q6H PRN Last Admin: 08/01/17 22:30 Dose: 650 mg Aspirin (Aspirin) 325 mg PO DAILY [facility] Last Admin: 08/03/17 10:43 Dose: 325 mg Diphenhydramine HCl (Benadryl) 25 mg PO Q6H PRN Last Admin: 08/01/17 22:30 Dose: 25 mg Enoxaparin Sodium (Lovenox) 40 mg SC DAILY [facility] Last Admin: 08/03/17 10:43 Dose: Not Given Meclizine HCl (Antivert) 25 mg PO Q8H PRN PRN Reason: Dizziness Metoprolol Tartrate (Lopressor) 25 mg PO BID [facility] Last Admin: 08/03/17 10:43 Dose: 25 mg Rosuvastatin Calcium (Crestor) 5 mg PO HS [facility] Last Admin: 08/02/17 21:27 Dose: 5 mg - Labs Labs: 08/03/17 07:32 08/03/17 07:32
[2017-08-03 12:34] VITALS: BP 118/81; PULSE 66; TEMP 97.9
--- NOTE | 2017-08-03 13:16 | PN ---
DATE: 08/03/2017 NEUROLOGICAL PROBLEM: Possible vertebrobasilar insufficiency versus partial complex seizures. PHYSICAL EXAMINATION VITAL SIGNS: Blood pressure 97/59, mean artery pressure of 71, respiratory rate 18, temperature 97.7, pulse rate 71 and regular. The patient is lying down in Trendelenburg position. She states usually the weight is even at home. She feels comfortable in that position. The patient denies any new complaints. She has been doing good for the last 48-hour period. The patient does not want to go into closed MRI of the brain, if possible that can be done as outpatient as per her request. Continue the present management. The patient's examination has not changed. If medically stable, the patient can be discharged and should follow up with her neurologist in [place]. Luisito Blair MD
--- NOTE | 2017-08-04 12:50 | DS ---
DISCHARGE DIAGNOSES: Dizziness, vertigo, chest pain, acute coronary syndrome ruled out, hypertension, hyperlipidemia, history of asthma, history of cerebrovascular accident without any deficit. HISTORY OF PRESENT ILLNESS: Ms. Miranda is a 46-year-old female with past medical history of hypertension, hyperlipidemia, asthma, history of TIA versus CVA without any residual neurological deficits. Has been following up with ____ in [place], came into the ED after patient felt very dizzy, had a near syncope and also complaining of retrosternal chest pain radiating to the back. In the ED, the patient was evaluated and admitted for further evaluation. Today, the patient is feeling much better. Denies any headaches, dizziness. Denies any chest pain, shortness of breath or wheezing. Denies any nausea, vomiting, abdominal pain, diarrhea or constipation. Denies any other urinary complaints. Denies any other neurologic symptoms. All other systems reviewed and were found to be negative. PHYSICAL EXAMINATION: GENERAL: Middle aged female lying in bed in no acute distress. VITAL SIGNS: Blood pressure 118/80, pulse 66, respirations 20, temperature 97.9 degrees Fahrenheit, O2 saturation 99% on room air. HEENT: Pupils equal, round and reacting to light and accommodation. Extraocular muscles are intact. No icterus. No pallor. No oral thrush. No pharyngeal congestion. No nasal congestion. NECK: Supple. No JVD. No thyromegaly. CHEST: Moving equally bilaterally on respiration. LUNGS: Bilateral vesicular breath sounds. No wheezing. No rhonchi. CVS: S1, S2 present. Regular. ABDOMEN: Soft and nontender. Bowel sounds are present. No guarding, no rigidity. No rebound tenderness noted. FIXTURE RELAMPER: Alert, awake, and oriented x3. No focal deficits noted. EXTREMITIES: No edema. Palpable peripheral pulses. LABORATORY DATA: Done from today; WBC 10.7, hemoglobin 12.4, hematocrit 35.8, platelets 245, sodium 140, potassium 4.3, chloride 105, bicarbonate 25, BUN 11, creatinine 0.7, glucose 83, calcium 8.4. LFTs within normal limits. HOSPITAL COURSE: The patient was admitted to telemetry for chest pain rule out [place]. The patient had three sets of cardiac enzymes negative. No new EKG changes. Echocardiogram with normal EF. The patient was evaluated by Cardiology. The patient is advised to have stress test as an outpatient. The patient was evaluated by Neurology for dizziness. She had CT scan of the head done, which was negative. CT of the chest was negative for any PE. Carotid Doppler was negative. Lower extremity DVT was negative. MRI was recommended, but the patient refused because of claustrophobia despite 1 dose of Ativan. The patient's symptoms improved with Antivert. This morning the patient was feeling much better without any dizziness. The patient is otherwise hemodynamically stable and cleared by Neurology and Cardiology. The patient is being discharged and advised the patient to follow up with her PMD, Neurology, and Cardiology as outpatient and recommended to have stress test as an outpatient. CONDITION UPON DISCHARGE: The patient is alert, awake, and oriented x3 and hemodynamically stable at the time of discharge. DISCHARGE INSTRUCTIONS: Follow up with PMD. Follow up with Cardiology. Follow up with Neurology. Needs stress test as outpatient. DISCHARGE DIET: Low sodium, low cholesterol 1800 calorie ADA heart healthy diet. ACTIVITY: As tolerated. DISCHARGE MEDICATIONS: The patient cannot recall her home medications. Advised to restart all her home medications as she claims that she takes Antivert 25 mg every 8 hours as needed at home and claims that she has all the prescriptions at home. Advised to continue with her home medication. The patient was advised to return to ED if any worsening of her symptoms. Kaveh Banks MD
== END 2017-08-03 13:12 | disposition home or self-care (01) ==
LOC: C.ER 13:18 → C.9E 18:01 → C.6T 19:38
PROVIDERS: ADMIT Internal Medicine; ATTEND Internal Medicine
DX: R07.89 Other chest pain (principal); I10 Essential (primary) hypertension; Z86.711 Personal history of pulmonary embolism; J45.909 Unspecified asthma, uncomplicated; Z86.73 Personal history of transient ischemic attack (TIA), and cerebral infarction without residual deficits; E78.5 Hyperlipidemia, unspecified; Z82.49 Family history of ischemic heart disease and other diseases of the circulatory system; E66.9 Obesity, unspecified; G81.94 Hemiplegia, unspecified affecting left nondominant side; Z68.31 Body mass index [BMI] 31.0-31.9, adult; F40.240 Claustrophobia; R42 Dizziness and giddiness
CPT/HCPCS: 36415; 70450; 71045; 71275; 80053; 80061; 81001; 82948; 83036; 83690; 84484; 85025; 85378; 93005; 93306; 93880; 93970; 96374; 99285; G0378; J1650; J1885; J2060; J2270; Q9967